=== PATIENT | female | born 1975 | race Caucasian/White ===

== ENCOUNTER 2017-02-07 18:12 | Emergency (ER) | payer OTHER ==
[~2017-02-07] VITALS: Ht 165.1 cm; Wt 59.0 kg
--- NOTE | 2017-02-07 18:44 | NUR ---
dr pina at the bedside for eval and exam.
--- NOTE | 2017-02-07 18:57 | NUR ---
pt refused x ray, stating I feel better and wishes to leave.
--- NOTE | 2017-02-07 18:59 | NUR ---
Patient discharged to home in stable conditon. Written and verbal after care instructions given. Patient verbalizes understanding of instructions.
[2017-02-07 19:01] VITALS: BP 116/72
== END 2017-02-07 19:01 | disposition home or self-care (01) ==
LOC: ER 18:13
DX: T18.9XXA Foreign body of alimentary tract, part unspecified, initial encounter (principal); E78.5 Hyperlipidemia, unspecified; X58.XXXA Exposure to other specified factors, initial encounter; Y93.89 Activity, other specified; Y99.8 Other external cause status; Y92.89 Other specified places as the place of occurrence of the external cause
CPT/HCPCS: A4663